=== PATIENT | male | born 1955 | race Caucasian/White ===

== ENCOUNTER 2017-02-04 09:02 | Outpatient (CLI) | payer OTHER ==
--- NOTE | 2017-02-04 12:40 | Diagnostic Imaging Report ---
Abdominal ultrasound (limited, gallbladder) The: Pain Limited sonographic images of the gallbladder provided. The gallbladder appears somewhat dilated. No definite intraluminal abnormality is. No definite calculi. No biliary dilatation (common bile duct equals 2 mm). IMPRESSION: 1. Limited exam of the gallbladder 2. Somewhat distended gallbladder. No definite intraluminal abnormalities (calculi) identified.
== END 2017-02-04 09:29 | disposition home or self-care (01) ==
LOC: RAD 09:02
PROVIDERS: ATTEND Family Medicine
DX: N32.89 Other specified disorders of bladder (principal)
CPT/HCPCS: 76705-TC

== ENCOUNTER 2017-10-14 09:08 | Emergency (ER) | payer OTHER ==
--- NOTE | 2017-10-14 09:22 | ED Physician Chart ---
ED Chief Complaint/HPI - Patient Information Date Seen:: 10/14/17 Time Seen:: 09:10 Chief Complaint:: dizziness History of Present Illness:: Patient developed dizziness a few minutes ago. No chest pain.. No shortness of breath. Allergies:: Allergies Allergy/AdvReac Type Severity Reaction Status Date / Time No Known Allergies Allergy Verified 05/19/17 09:52 Historian:: Patient Review:: Nurse's Note Reviewed ED Review of Systems - Review of Systems General/Constitutional: No fever, No chills, No weight loss, No weakness, No diaphoresis, No edema, No loss of appetite Skin: No skin lesions, No rash, No bruising Head: No headache, No light-headedness Eyes: No loss of vision, No pain, No diplopia ENT: No earache, No nasal drainage, No sore throat, No tinnitus Neck: No neck pain, No swelling, No thyromegaly, No stiffness, No mass noted Cardio Vascular: Palpitations, No PND, No orthopnea, No edema Pulmonary: No SOB, No cough, No sputum, No wheezing GI: No nausea, No vomiting, No diarrhea, No pain, No melena, No hematochezia, No constipation, No hematemesis G/U: No dysuria, No frequency, No hematuria Musculoskeletal: No bone or joint pain, No back pain, No muscle pain Endocrine: No polyuria, No polydipsia Psychiatric: No prior psych history, No depression, No anxiety, No suicidal ideation Hematopoietic: No bruising, No lymphadenopathy Allergic/Immuno: No urticaria, No angioedema Neurological: No syncope, No focal symptoms, No weakness, No paresthesia, No headache, No seizure, Dizziness, No confusion, No vertigo ED Past Medical History - Past Medical History Past Medical History: HTN, Other (patient's had 2 prior episodes of tachycardia last one 8 months ago; peptic ulcer disease) Family History: HTN Social History: Non Smoker, No Alcohol 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) Psychiatricy History: None Medication: Reviewed Family Medical History - Family Member Mother History Unknown: Yes Ethnicity: Living Status: Hx Family Congestive Heart Failure: Yes ED Physical Exam - Physical Examination General/Constitutional: Awake, Well-developed, well-nourished, Alert, No distress, GCS 15, Non-toxic appearing, Ambulatory Head: Atraumatic Eyes: Lids, conjuctiva normal, PERRL, EOMI Skin: Nl inspection, No rash, No skin lesions, No ecchymosis, Well hydrated, No lymphadenopathy ENMT: External ears, nose nl, Nasal exam nl, Lips, teeth, gums nl Neck: Nontender, Full ROM w/o pain, No JVD, No nuchal rigidity, No bruit, No mass, No stridor Respiratory: Nl effort/Exclusion, Clear to Auscultation, No Wheeze/Rhonchi/Rales Cardio Vascular: RRR, No murmur, gallop, rubs, NL S1 S2 Other Cardio Vascular comments:: Rapid regular rhythm with no murmur or extra sounds GI: No tenderness/rebounding/guarding, No organomegaly, No hernia, Normal BS's, Nondistended, No mass/bruits, No McBurney tenderness : No CVA tenderness Extremities: No tenderness or effusion, Full ROM, normal strength in all extremities, No edema, Normal digits & nails Neuro/Psych: Alert/oriented, DTR's symmetric, Normal sensory exam, Normal motor strength, Judgement/insight normal, Mood normal, Normal gait, No focal deficits Misc: Normal back, No paraspinal tenderness ED Assessment - Assessment General Assessment: Initial EKG showed paroxysmal supraventricular tachycardia; repeat EKGs showed a normal sinus rhythm at a rate of 89 and borderline left axis deviation. There is also [address] depression in leads V4 to V6. - Procedures Procedures:: Patient given adenosine 6 mg IV push with no change in his heart rate. Patient then given adenosine 12 mg IV push with a conversion of his cardiac rhythm to normal sinus. ED Septic Shock - . Is Septic Shock (SBP<90, OR Lactate>4 mmol\L) present?: No ED Reassessment (Disposition) - Reassessment Reassessment Condition:: Improved - Diagnosis Diagnosis:: Paroxysmal supraventricular tachycardia; chemical conversion to normal sinus rhythm - Aftercare/Follow up Instructions Aftercare/Follow-Up Instructions:: Refer to Discharge Instructions - Patient Disposition Discharge/Transfer:: Home Condition at Disposition:: Stable, Improved
== END 2017-10-14 09:47 | disposition home or self-care (01) ==
LOC: ER 09:08
DX: I47.1 Supraventricular tachycardia (principal); I10 Essential (primary) hypertension
CPT/HCPCS: 93005; 96374; J0153; J7030; Z7502

== ENCOUNTER 2017-10-22 07:21 | Outpatient (CLI) | payer OTHER ==
[2017-10-22 08:04] LABS: URINE MICROSCOPIC INDICATED? YES; URINE SOURCE RANDOM
[2017-10-22 08:04] LABS: % EOSINOPHILS 3.3 % (0.0-5.0); % LYMPHOCYTES 27.1 % (20.0-50.0); % MONOCYTES 8.4 % (2.0-10.0); % NEUTROPHILS 60.2 % (40.0-80.0); BASOPHILE ABSOLUTE 0.1 Th/cumm (0-0.2); EOSINOPHILE ABSOLUTE 0.2 Th/cmm (0.1-0.4); HEMATOCRIT 44.5 % (41.0-60); LYMPHOCYTE ABSOLUTE 1.8 Th/cmm (1.5-3.0); MEAN CELL VOLUME 89.8 fl (80-99); MEAN CORPUSCULAR HEMOGLOBIN 30.2 pg (26.0-30.0); MEAN CORPUSCULAR HGB CONC 33.6 pg (28.0-36.0); MEAN PLATELET VOLUME 7.3 fl; MONOCYTE ABSOLUTE 0.6 Th/cmm (0.3-1.0); NEUTROPHILE ABSOLUTE 3.9 Th/cmm (1.8-8.0); PLATELET COUNT 300 Th/cmm (150-400); RED BLOOD COUNT 4.96 Mil/cmm (4.30-5.70); RED CELL DISTRIBUTION WIDTH 13.7 % (11.5-20.0); WHITE BLOOD COUNT 6.6 Th/cmm (4.8-10.8)
[2017-10-22 08:08] LABS: URINE BILIRUBIN NEGATIVE (NEGATIVE); URINE BLOOD SMALL (NEGATIVE); URINE GLUCOSE (UA) NEGATIVE (NEGATIVE); URINE KETONE NEGATIVE (NEGATIVE); URINE LEUKOCYTE ESTERASE NEGATIVE (NEGATIVE); URINE NITRATE NEGATIVE (NEGATIVE); URINE PH 5.5 (4.6 - 8.0); URINE PROTEIN NEGATIVE (NEGATIVE); URINE UROBILINOGEN 0.2 E.U./dL (0.2 - 1.0)
[2017-10-22 08:13] LABS: URINE CLARITY CLEAR (CLEAR); URINE COLOR YELLOW
[2017-10-22 08:18] LABS: URINE BACTERIA FEW /hpf (NONE SEEN); URINE EPITHELIAL CELLS OCCASIONAL /lpf (FEW); URINE WBC 0-2 /hpf (0-5)
[2017-10-22 08:35] LABS: ALB/GLOB RATIO 1.4 (1.0-1.8); ALBUMIN 4.4 gm/dL (4.2-5.5); ALKALINE PHOSPHATASE 80 U/L (34-104); ANION GAP 11.5 (7.0-16.0); BILIRUBIN,TOTAL 0.6 mg/dL (0.3-1.0); BUN - UREA NITROGEN 21 mg/dL (7-25); CALCIUM SERUM 9.6 mg/dL (8.6-10.3); CARBON DIOXIDE 26.7 mEq/L (21.0-31.0); CHLORIDE 102 mEq/L (98-107); CREATININE - SERUM 0.9 mg/dL (0.7-1.3); GFR AFRICAN-AMERICAN > 60.0 ml/min (>90); GFR NON AFRICAN-AMERICAN > 60.0 ml/min; GLUCOSE 99 mg/dL (70-105); POTASSIUM SERUM 4.2 mEq/L (3.5-5.1); SGOT 12 U/L (13-39); SGPT/ALT 10 U/L (7-52); SODIUM SERUM 136 mEq/L (136-145); TOTAL PROTEIN,SERUM 7.6 gm/dL (6.0-8.3)
== END 2017-10-22 08:15 | disposition home or self-care (01) ==
LOC: LAB 07:21
PROVIDERS: ATTEND Family Medicine
DX: I10 Essential (primary) hypertension (principal); E78.5 Hyperlipidemia, unspecified; R79.89 Other specified abnormal findings of blood chemistry
CPT/HCPCS: 36415-UA; 80053-TC; 81001-TC; 84153-90; 84436-90; 84443-TC; 84480-90; 85025-TC

== ENCOUNTER 2017-12-12 16:02 | Emergency (ER) | payer OTHER ==
[2017-12-12 16:49] LABS: NEUTROPHILE ABSOLUTE 4.7 Th/cmm (1.8-8.0); WHITE BLOOD COUNT 7.6 Th/cmm (4.8-10.8)
[2017-12-12 16:52] LABS: % BASOPHILS 0.5 % (0.0-2.0); % EOSINOPHILS 3.1 % (0.0-5.0); % LYMPHOCYTES 26.2 % (20.0-50.0); % MONOCYTES 8.8 % (2.0-10.0); % NEUTROPHILS 61.4 % (40.0-80.0); EOSINOPHILE ABSOLUTE 0.2 Th/cmm (0.1-0.4); HEMATOCRIT 42.3 % (41.0-60); HEMOGLOBIN 14.5 gm/dL (12-16); MEAN CELL VOLUME 89.7 fl (80-99); MEAN CORPUSCULAR HEMOGLOBIN 30.8 pg (26.0-30.0); MEAN CORPUSCULAR HGB CONC 34.3 pg (28.0-36.0); MEAN PLATELET VOLUME 7.6 fl; MONOCYTE ABSOLUTE 0.7 Th/cmm (0.3-1.0); PLATELET COUNT 285 Th/cmm (150-400); RED BLOOD COUNT 4.72 Mil/cmm (4.30-5.70)
--- NOTE | 2017-12-12 17:00 | ED Physician Chart ---
ED Chief Complaint/HPI - Patient Information Date Seen:: 12/12/17 Time Seen:: 16:56 Chief Complaint:: hypertension History of Present Illness:: 62 yr oldmale with hx of hypertension md adjusting meds hctz sotolol now on metoprolol no headache dizziness no cp or sob Allergies:: Allergies Allergy/AdvReac Type Severity Reaction Status Date / Time No Known Allergies Allergy Verified 10/14/17 09:44 Vitals:: Vital Signs - 8 hr 12/12/17 16:15 Temp 97.8 F HR 70 RR 17 BP 141/60 O2 Sat % 98 Historian:: Patient ED Review of Systems - Review of Systems General/Constitutional: No fever, No chills, No weight loss, No weakness, No diaphoresis, No edema, No loss of appetite Skin: No skin lesions, No rash, No bruising Head: No headache, No light-headedness Eyes: No loss of vision, No pain, No diplopia ENT: No earache, No nasal drainage, No sore throat, No tinnitus Neck: No neck pain, No swelling, No thyromegaly, No stiffness, No mass noted Cardio Vascular: No chest pain, No palpitations, No PND, No orthopnea, No edema Pulmonary: No SOB, No cough, No sputum, No wheezing GI: No nausea, No vomiting, No diarrhea, No pain, No melena, No hematochezia, No constipation, No hematemesis G/U: No dysuria, No frequency, No hematuria Musculoskeletal: No bone or joint pain, No back pain, No muscle pain Endocrine: No polyuria, No polydipsia Psychiatric: No prior psych history, No depression, No anxiety, No suicidal ideation Hematopoietic: No bruising, No lymphadenopathy Allergic/Immuno: No urticaria, No angioedema Neurological: No syncope, No focal symptoms, No weakness, No paresthesia, No headache, No seizure, No dizziness, No confusion, No vertigo ED Past Medical History - Past Medical History Past Medical History: HTN Family Medical History - Family Member Mother History Unknown: Yes Ethnicity: Living Status: Hx Family Congestive Heart Failure: Yes Hx Family Hypertension: Yes ED Physical Exam - Physical Examination General/Constitutional: Awake, Well-developed, well-nourished, Alert, No distress, GCS 15, Non-toxic appearing, Ambulatory Head: Atraumatic Eyes: Lids, conjuctiva normal, PERRL, EOMI Skin: Nl inspection, No rash, No skin lesions, No ecchymosis, Well hydrated, No lymphadenopathy ENMT: External ears, nose nl, Nasal exam nl, Lips, teeth, gums nl Neck: Nontender, Full ROM w/o pain, No JVD, No nuchal rigidity, No bruit, No mass, No stridor Respiratory: Nl effort/Exclusion, Clear to Auscultation, No Wheeze/Rhonchi/Rales Cardio Vascular: RRR, No murmur, gallop, rubs, NL S1 S2 GI: No tenderness/rebounding/guarding, No organomegaly, No hernia, Normal BS's, Nondistended, No mass/bruits, No McBurney tenderness : No CVA tenderness Extremities: No tenderness or effusion, Full ROM, normal strength in all extremities, No edema, Normal digits & nails Neuro/Psych: Alert/oriented, DTR's symmetric, Normal sensory exam, Normal motor strength, Judgement/insight normal, Mood normal, Normal gait, No focal deficits Misc: Normal back, No paraspinal tenderness ED Labs/Radiology/EKG Results - Lab Results Results: Laboratory Tests 12/12/17 16:38 WBC 7.6 RBC 4.72 Hgb 14.5 Hct 42.3 MCV 89.7 MCH 30.8 H MCHC Differential 34.3 RDW 14.0 Plt Count 285 MPV 7.6 Neutrophils % 61.4 Lymphocytes % 26.2 Monocytes % 8.8 Eosinophils % 3.1 Basophils % 0.5 ED Assessment - Assessment General Assessment: hypertension elevation ED Septic Shock - . Is Septic Shock (SBP<90, OR Lactate>4 mmol\L) present?: No - <6hrs of presentation: Vital Signs: Vital Signs - 8 hr 12/12/17 16:15 Temp 97.8 F HR 70 RR 17 BP 141/60 O2 Sat % 98 ED Reassessment (Disposition) - Diagnosis Diagnosis:: hypertension stable - Aftercare/Follow up Instructions Medication Prescribed:: none - Patient Disposition Discharge/Transfer:: Home ED Discharge Plan - Patient Disposition Condition at Disposition: Stable
[2017-12-12 17:02] LABS: ALB/GLOB RATIO 1.6 (1.0-1.8); ALBUMIN 4.6 gm/dL (4.2-5.5); ALKALINE PHOSPHATASE 78 U/L (34-104); ANION GAP 11.3 (7.0-16.0); BILIRUBIN,TOTAL 0.5 mg/dL (0.3-1.0); BUN - UREA NITROGEN 19 mg/dL (7-25); CALCIUM SERUM 10.1 mg/dL (8.6-10.3); CARBON DIOXIDE 26.7 mEq/L (21.0-31.0); CHLORIDE 102 mEq/L (98-107); CREATININE - SERUM 0.9 mg/dL (0.7-1.3); GFR AFRICAN-AMERICAN > 60.0 ml/min (>90); GFR NON AFRICAN-AMERICAN > 60.0 ml/min; GLUCOSE 100 mg/dL (70-105); SGOT 15 U/L (13-39); SGPT/ALT 10 U/L (7-52); SODIUM SERUM 136 mEq/L (136-145); TOTAL PROTEIN,SERUM 7.4 gm/dL (6.0-8.3)
== END 2017-12-12 17:15 | disposition home or self-care (01) ==
LOC: ER 16:02
DX: I10 Essential (primary) hypertension (principal)
CPT/HCPCS: 36415-UA; 80053-TC; 84484-TC; 85025-TC; Z7502

== ENCOUNTER 2018-04-12 20:55 | Emergency (ER) | payer OTHER ==
[2018-04-12] MEDS ORDERED: Diltiazem 5 mg/mL 5mL Vial IVP STA (21:21)
[2018-04-12] MEDS ORDERED: Diltiazem 5 mg/mL 5mL Vial IVP ONE (21:25)
[2018-04-12 21:45] LABS: % BASOPHILS 0.4 % (0.0-2.0); % NEUTROPHILS 51.6 % (40.0-80.0); EOSINOPHILE ABSOLUTE 0.4 Th/cmm (0.1-0.4); HEMATOCRIT 44.4 % (41.0-60); HEMOGLOBIN 14.6 gm/dL (12-16); LYMPHOCYTE ABSOLUTE 3.3 Th/cmm (1.5-3.0); MEAN CELL VOLUME 91.2 fl (80-99); MEAN CORPUSCULAR HEMOGLOBIN 30.1 pg (26.0-30.0); MEAN PLATELET VOLUME 8.2 fl; MONOCYTE ABSOLUTE 0.8 Th/cmm (0.3-1.0); NEUTROPHILE ABSOLUTE 4.9 Th/cmm (1.8-8.0); PLATELET COUNT 286 Th/cmm (150-400); RED BLOOD COUNT 4.86 Mil/cmm (4.30-5.70); RED CELL DISTRIBUTION WIDTH 13.6 % (11.5-20.0); WHITE BLOOD COUNT 9.4 Th/cmm (4.8-10.8)
--- NOTE | 2018-04-12 21:46 | ED Physician Chart ---
ED Chief Complaint/HPI - Patient Information Date Seen:: 04/12/18 Time Seen:: 21:45 Chief Complaint:: Palpitation History of Present Illness:: 62 yo male with history of hypertension, took metoprolol one tab around 6pm. Patient then had sudden onset of dizziness and palpitation at home around 8pm. Patient took blood pressure, 126/77, HR 164. Patient denied chest pain, shortness of breath, or sweats. However, patient had burping and mid upper back pain. Patient was subsequently brought by to ER. On arrival, BP 121/87, HR 174, O2 sat 98% on room air. Cardizem 10mg IV push was given and HR went to 79, BP 122/67. Patient had similar episode of palpitation about 5 months ago. Patient has been seeing a hoop maker machine and was told earlier today that his 2- week hall monitor was unremarkable. Allergies:: Allergies Allergy/AdvReac Type Severity Reaction Status Date / Time No Known Allergies Allergy Verified 04/12/18 21:16 Vitals:: Vital Signs - 8 hr 04/12/18 04/12/18 21:00 21:28 Temp 98.0 F HR 174 174 RR 11 BP 121/87 O2 Sat % 96 ED Review of Systems - Review of Systems General/Constitutional: No fever, Chills Skin: No rash Head: No light-headedness Eyes: No pain ENT: No nasal drainage Neck: No neck pain Cardio Vascular: No chest pain, Palpitations Pulmonary: No SOB GI: No nausea, No vomiting Musculoskeletal: No bone or joint pain, Back pain (mid upper back pain) Psychiatric: No prior psych history Neurological: No focal symptoms ED Past Medical History - Past Medical History Past Medical History: HTN Social History: Non Smoker, No Alcohol, No Drug Use Surgical History: other (EGD for gastric ulcer) Family Medical History - Family Member Mother History Unknown: Yes Ethnicity: Living Status: Hx Family Congestive Heart Failure: Yes Hx Family Hypertension: Yes ED Physical Exam - Physical Examination General/Constitutional: Awake, Alert Head: Atraumatic Eyes: PERRL, EOMI Skin: No skin lesions ENMT: Nasal exam nl Neck: No nuchal rigidity Respiratory: Clear to Auscultation, No Wheeze/Rhonchi/Rales Cardio Vascular: RRR, No murmur, gallop, rubs, NL S1 S2 GI: No tenderness/rebounding/guarding Extremities: No tenderness or effusion Neuro/Psych: Normal sensory exam, Normal motor strength, No focal deficits ED Labs/Radiology/EKG Results - Lab Results Results: Laboratory Last Values WBC 9.4 Th/cmm (4.8-10.8) 04/12/18 21:35 RBC 4.86 Mil/cmm (4.30-5.70) 04/12/18 21:35 Hgb 14.6 gm/dL (12-16) 04/12/18 21:35 Hct 44.4 % (41.0-60) 04/12/18 21:35 MCV 91.2 fl (80-99) 04/12/18 21:35 MCH 30.1 pg (26.0-30.0) H 04/12/18 21:35 MCHC Differential 33.0 pg (28.0-36.0) 04/12/18 21:35 RDW 13.6 % (11.5-20.0) 04/12/18 21:35 Plt Count 286 Th/cmm (150-400) 04/12/18 21:35 MPV 8.2 fl 04/12/18 21:35 Neutrophils % 51.6 % (40.0-80.0) 04/12/18 21:35 Lymphocytes % 35.0 % (20.0-50.0) 04/12/18 21:35 Monocytes % 9.0 % (2.0-10.0) 04/12/18 21:35 Eosinophils % 4.0 % (0.0-5.0) 04/12/18 21:35 Basophils % 0.4 % (0.0-2.0) 04/12/18 21:35 D-Dimer < 100 ng/mL (100-400) L 04/12/18 21:35 Sodium 136 mEq/L (136-145) 04/12/18 21:35 Potassium 4.2 mEq/L (3.5-5.1) 04/12/18 21:35 Chloride 102 mEq/L (98-107) 04/12/18 21:35 Carbon Dioxide 23.6 mEq/L (21.0-31.0) 04/12/18 21:35 Anion Gap 14.6 (7.0-16.0) 04/12/18 21:35 BUN 20 mg/dL (7-25) 04/12/18 21:35 Creatinine 0.9 mg/dL (0.7-1.3) 04/12/18 21:35 Est GFR ( Amer) > 60.0 ml/min (>90) 04/12/18 21:35 Est GFR (Non-Af Amer) > 60.0 ml/min 04/12/18 21:35 BUN/Creatinine Ratio 22.2 04/12/18 21:35 Glucose 116 mg/dL (70-105) H 04/12/18 21:35 Calcium 9.7 mg/dL (8.6-10.3) 04/12/18 21:35 Total Bilirubin 0.3 mg/dL (0.3-1.0) 04/12/18 21:35 AST 19 U/L (13-39) 04/12/18 21:35 ALT 11 U/L (7-52) 04/12/18 21:35 Alkaline Phosphatase 88 U/L (34-104) 04/12/18 21:35 Creatine Kinase 129 U/L (30-223) 04/12/18 21:35 Troponin I 0.01 ng/mL (0.01-0.05) 04/12/18 21:35 B-Natriuretic Peptide 27.8 pg/mL (5.0-100.0) 04/12/18 21:35 Total Protein 7.9 gm/dL (6.0-8.3) 04/12/18 21:35 Albumin 4.5 gm/dL (4.2-5.5) 04/12/18 21:35 Globulin 3.4 gm/dL 04/12/18 21:35 Albumin/Globulin Ratio 1.3 (1.0-1.8) 04/12/18 21:35 - Radiology Results Results: CXR: no focal consolidation - EKG Interpretations EKG Time:: 21:13 Rate & Rhythm: 177 bpm, supraventricular tachycardia [place]: Probable left ventricular hypertrophy Intervals: Left anterior fascicular block ED Assessment - Assessment General Assessment: Supraventricular tachycardia Hypertension Dehydration Assessment/Comments:: EKG Cardizem 10mg IV CBC, CMP, BNP, Trop, CPK CXR NS 1L IV bolus D/c home Cardizem 30mg po q6h F/u hoop maker machine within 3 days ED Septic Shock - . Is Septic Shock (SBP<90, OR Lactate>4 mmol\L) present?: No - <6hrs of presentation: Vital Signs: Vital Signs - 8 hr 04/12/18 04/12/18 21:00 21:28 Temp 98.0 F HR 174 174 RR 11 BP 121/87 O2 Sat % 96 ED Reassessment (Disposition) - Reassessment Reassessment Condition:: Improved - Aftercare/Follow up Instructions Medication Prescribed:: Diltiazem 30mg po qid #28 - Patient Disposition Discharge/Transfer:: Home
[2018-04-12 21:59] LABS: ALB/GLOB RATIO 1.3 (1.0-1.8); ALBUMIN 4.5 gm/dL (4.2-5.5); ALKALINE PHOSPHATASE 88 U/L (34-104); ANION GAP 14.6 (7.0-16.0); BILIRUBIN,TOTAL 0.3 mg/dL (0.3-1.0); BUN - UREA NITROGEN 20 mg/dL (7-25); CALCIUM SERUM 9.7 mg/dL (8.6-10.3); CARBON DIOXIDE 23.6 mEq/L (21.0-31.0); CHLORIDE 102 mEq/L (98-107); CREATININE - SERUM 0.9 mg/dL (0.7-1.3); GFR AFRICAN-AMERICAN > 60.0 ml/min (>90); GFR NON AFRICAN-AMERICAN > 60.0 ml/min; GLUCOSE 116 mg/dL (70-105); POTASSIUM SERUM 4.2 mEq/L (3.5-5.1); SGOT 19 U/L (13-39); SGPT/ALT 11 U/L (7-52); SODIUM SERUM 136 mEq/L (136-145); TOTAL PROTEIN,SERUM 7.9 gm/dL (6.0-8.3)
[2018-04-12] MEDS ORDERED: Sodium Chloride 0.9% 1,000 ML IV ONE (22:09)
--- NOTE | 2018-04-13 08:44 | Diagnostic Imaging Report ---
CHEST X-RAY: AP view INDICATION: Palpitations COMPARISON: Chest x-ray 05/19/2017 FINDINGS: Chronic lung changes are seen. Right pericardiophrenic density is noted likely a prominent fat pad. No focal consolidation or effusions. Heart size is normal. Degenerative changes of the spine are noted. IMPRESSION: Right pericardiophrenic density probably a prominent fat pad. If necessary, CT would further clarify Otherwise no focal consolidation identified.
== END 2018-04-12 23:10 | disposition home or self-care (01) ==
LOC: ER 20:55
DX: I47.1 Supraventricular tachycardia (principal); I10 Essential (primary) hypertension; E86.0 Dehydration
CPT/HCPCS: 36415-UA; 71045-TC; 80053-TC; 82550-TC; 83880-TC; 84484-TC; 85025-TC; 85379-TC; 90779; 93005; 96374; J7030

== ENCOUNTER 2018-07-25 06:12 | Inpatient (IN) | payer OTHER ==
[2018-07-25] MEDS ORDERED: Diltiazem 5 mg/mL 5mL Vial IVP ONE (06:28)
[2018-07-25] MEDS ORDERED: Diltiazem 5 mg/mL 5mL Vial IVP STA (06:29)
--- NOTE | 2018-07-25 06:36 | ED Physician Chart ---
ED Chief Complaint/HPI - Patient Information Date Seen:: 07/25/18 Time Seen:: 06:31 Chief Complaint:: tachycardia History of Present Illness:: 62 yr old male with tachycardia this morning at 5 am while making coffee and felt palpitaions and head gallardo and in er ht was 170 Allergies:: Allergies Allergy/AdvReac Type Severity Reaction Status Date / Time No Known Allergies Allergy Verified 07/25/18 06:20 Vitals:: Vital Signs - 8 hr 07/25/18 06:15 Temp 98.1 F HR 186 RR 18 BP 131/82 O2 Sat % 96 <Gillian Moreno - Last Filed: 07/25/18 06:31> - Patient Information Chief Complaint:: superventricular tachycardia Allergies:: Allergies Allergy/AdvReac Type Severity Reaction Status Date / Time No Known Allergies Allergy Verified 07/25/18 06:20 Vitals:: Vital Signs - 8 hr 07/25/18 07/25/18 07/25/18 06:15 06:25 06:30 Temp 98.1 F HR 186 178 174 RR 18 18 BP 131/82 115/68 O2 Sat % 96 94 07/25/18 07/25/18 07/25/18 06:34 07:27 07:30 Temp 98.1 F HR 72 76 RR 18 12 BP 108/62 121/70 O2 Sat % 97 99 <Ethan Harris - Last Filed: 07/25/18 07:36> ED Review of Systems - Review of Systems General/Constitutional: No fever, No chills, No weight loss, No weakness, No diaphoresis, No edema, No loss of appetite Skin: No skin lesions, No rash, No bruising Head: No headache, No light-headedness Eyes: No loss of vision, No pain, No diplopia ENT: No earache, No nasal drainage, No sore throat, No tinnitus Neck: No neck pain, No swelling, No thyromegaly, No stiffness, No mass noted Cardio Vascular: Palpitations Pulmonary: No SOB, No cough, No sputum, No wheezing GI: No nausea, No vomiting, No diarrhea, No pain, No melena, No hematochezia, No constipation, No hematemesis G/U: No dysuria, No frequency, No hematuria Musculoskeletal: No bone or joint pain, No back pain, No muscle pain Endocrine: No polyuria, No polydipsia Psychiatric: No prior psych history, No depression, No anxiety, No suicidal ideation Hematopoietic: No bruising, No lymphadenopathy Allergic/Immuno: No urticaria, No angioedema Neurological: No syncope, No focal symptoms, No weakness, No paresthesia, No headache, No seizure, No dizziness, No confusion, No vertigo <JoshkentonGillian Filed: 07/25/18 06:31> ED Past Medical History - Past Medical History Past Medical History: Other (svt) <juan [email or web address] Filed: 07/25/18 06:31> Family Medical History - Family Member Mother History Unknown: Yes Ethnicity: Living Status: Hx Family Congestive Heart Failure: Yes Hx Family Hypertension: Yes <Gillian Moreno Filed: 07/25/18 06:31> ED Physical Exam - Physical Examination General/Constitutional: Awake, Well-developed, well-nourished, Alert, No distress, GCS 15, Non-toxic appearing, Ambulatory Head: Atraumatic Eyes: Lids, conjuctiva normal, PERRL, EOMI Skin: Nl inspection, No rash, No skin lesions, No ecchymosis, Well hydrated, No lymphadenopathy ENMT: External ears, nose nl, Nasal exam nl, Lips, teeth, gums nl Neck: Nontender, Full ROM w/o pain, No JVD, No nuchal rigidity, No bruit, No mass, No stridor Respiratory: Nl effort/Exclusion, Clear to Auscultation, No Wheeze/Rhonchi/Rales Cardio Vascular: RRR, No murmur, gallop, rubs, NL S1 S2 Other Cardio Vascular comments:: tachycardia GI: No tenderness/rebounding/guarding, No organomegaly, No hernia, Normal BS's, Nondistended, No mass/bruits, No McBurney tenderness : No CVA tenderness Extremities: No tenderness or effusion, Full ROM, normal strength in all extremities, No edema, Normal digits & nails Neuro/Psych: Alert/oriented, DTR's symmetric, Normal sensory exam, Normal motor strength, Judgement/insight normal, Mood normal, Normal gait, No focal deficits Misc: Normal back, No paraspinal tenderness <JoshkentonGillian Filed: 07/25/18 06:31> ED Labs/Radiology/EKG Results - Lab Results Results: Laboratory Tests 07/25/18 07/25/18 07/25/18 06:45 06:45 06:45 WBC 8.0 RBC 4.76 Hgb 14.2 Hct 42.9 MCV 90.0 MCH 29.8 MCHC Differential 33.2 RDW 13.7 Plt Count 277 MPV 8.1 Neutrophils % 52.5 Lymphocytes % 32.8 Monocytes % 9.6 Eosinophils % 4.5 Basophils % 0.6 PT 10.5 INR 1.01 PTT (Actin FS) 31.0 Troponin I < 0.01 L <Ehtan Harris - Last Filed: 07/25/18 07:36> ED Assessment - Assessment General Assessment: tachycardia svt <Gillian Moreno - Last Filed: 07/25/18 06:31> ED Septic Shock - . Is Septic Shock (SBP<90, OR Lactate>4 mmol\L) present?: No - <6hrs of presentation: Vital Signs: Vital Signs - 8 hr 07/25/18 06:15 Temp 98.1 F HR 186 RR 18 BP 131/82 O2 Sat % 96 <Gillian Moreno - Last Filed: 07/25/18 06:31> - <6hrs of presentation: Vital Signs: Vital Signs - 8 hr 07/25/18 07/25/18 07/25/18 06:15 06:25 06:30 Temp 98.1 F HR 186 178 174 RR 18 18 BP 131/82 115/68 O2 Sat % 96 94 07/25/18 07/25/18 07/25/18 06:34 07:27 07:30 Temp 98.1 F HR 72 76 RR 18 12 BP 108/62 121/70 O2 Sat % 97 99 <Ethan Harris - Last Filed: 07/25/18 07:36> ED Reassessment (Disposition) - Reassessment Reassessment:: tachycardia svt - Diagnosis Diagnosis:: tachycardia svt - Aftercare/Follow up Instructions Aftercare/Follow-Up Instructions:: Counseled pt regarding lab results/diagnosis & need follow up - Patient Disposition Discharge/Transfer:: Home Condition at Disposition:: Stable <Gillian Moreno - Last Filed: 07/25/18 06:31> - Aftercare/Follow up Instructions Notes:: spoke to the patient's doctor and he wanted the patient admitted. - Patient Disposition Discharge/Transfer:: Acute Care w/in this hosp Admitting Medical Physician:: Abdoul Luna <Ethan Harris - Last Filed: 07/25/18 07:36>
[2018-07-25 07:03] LABS: % BASOPHILS 0.6 % (0.0-2.0); % EOSINOPHILS 4.5 % (0.0-5.0); % LYMPHOCYTES 32.8 % (20.0-50.0); % MONOCYTES 9.6 % (2.0-10.0); % NEUTROPHILS 52.5 % (40.0-80.0); EOSINOPHILE ABSOLUTE 0.4 Th/cmm (0.1-0.4); HEMATOCRIT 42.9 % (41.0-60); HEMOGLOBIN 14.2 gm/dL (12-16); LYMPHOCYTE ABSOLUTE 2.6 Th/cmm (1.5-3.0); MEAN CORPUSCULAR HEMOGLOBIN 29.8 pg (26.0-30.0); MEAN CORPUSCULAR HGB CONC 33.2 pg (28.0-36.0); MEAN PLATELET VOLUME 8.1 fl; MONOCYTE ABSOLUTE 0.8 Th/cmm (0.3-1.0); NEUTROPHILE ABSOLUTE 4.2 Th/cmm (1.8-8.0); PLATELET COUNT 277 Th/cmm (150-400); RED BLOOD COUNT 4.76 Mil/cmm (4.30-5.70); RED CELL DISTRIBUTION WIDTH 13.7 % (11.5-20.0)
[2018-07-25] MEDS ORDERED: Sodium Chloride 0.9% 1,000 ML IV ONE (07:03)
[2018-07-25 07:15] LABS: INR 1.01 (0.5-1.4); PROTHROMBIN TIME (TEST) 10.5 SECONDS (9.5-11.5)
[2018-07-25 07:19] LABS: ALB/GLOB RATIO 1.6 (1.0-1.8); ALBUMIN 4.2 gm/dL (4.2-5.5); ALKALINE PHOSPHATASE 79 U/L (34-104); BILIRUBIN,TOTAL 0.3 mg/dL (0.3-1.0); BUN - UREA NITROGEN 21 mg/dL (7-25); CARBON DIOXIDE 23.3 mEq/L (21.0-31.0); CREATININE - SERUM 0.9 mg/dL (0.7-1.3); GFR AFRICAN-AMERICAN > 60.0 ml/min (>90); GFR NON AFRICAN-AMERICAN > 60.0 ml/min; GLUCOSE 126 mg/dL (70-105); SGOT 15 U/L (13-39); SGPT/ALT 12 U/L (7-52); TOTAL PROTEIN,SERUM 6.9 gm/dL (6.0-8.3)
[2018-07-25 07:53] LABS: ANION GAP 14.6 (7.0-16.0); CHLORIDE 105 mEq/L (98-107); POTASSIUM SERUM 3.9 mEq/L (3.5-5.1); SODIUM SERUM 139 mEq/L (136-145)
[2018-07-25] MEDS ORDERED: Diltiazem 30 mg Tab PO PRN (12:11)
[2018-07-25 12:39] LABS: CHOLESTEROL 233 mg/dL (<200); HDL -HIGH DENSITY LIPOPROTEIN 38 mg/dL (23-92); TRIGLYCERIDES 275 mg/dL (<150)
[2018-07-25 13:19] VITALS: BP 132/61
--- NOTE | 2018-07-25 14:16 | History and Physical ---
History of Present Illness - HPI Chief Complaint: chest pain rule out ACS HPI: 62 y/o male who presents to [facility] ER for substernal chest pain. Vital Signs: Last Vital Signs Temp 97.7 F 07/25/18 11:37 Pulse 60 07/25/18 11:37 Resp 20 07/25/18 13:03 BP 132/61 07/25/18 13:12 Pulse Ox 98 07/25/18 11:37 Past Medical History Cardiovascular: Report: HTN Pulmonary: Report: No Pertinent Hx [employer] STEWARD: Report: No Pertinent Hx GI: Report: No Pertinent Hx Psych: Report: No Pertinent Hx Musculoskeletal: Report: No Pertinent Hx Rheumatologic: Report: No pertinent Hx Infectious Disease: Report: No Pertinent Hx Renal/: Report: No Pertinent Hx Endocrine: Report: No Pertinent Hx Dermatology: Report: No Pertinent Hx - Past Surgical History Past Surgical History: No pertinent Hx Family Medical History - Family Member Mother History Unknown: Yes Ethnicity: Living Status: Hx Family Congestive Heart Failure: Yes Hx Family Hypertension: Yes Social History Smoke: No Alcohol: None Drugs: None Lives: With Family - Medications Home Medications: Home Medication Medication Instructions Recorded Type Aspirin EC [Ecotrin] 81 mg PO DAILY 11/07/14 History Lisinopril/Hydrochlorothiazide 1 tab PO DAILY 12/12/17 History [Lisinopril-Hctz 20-12.5 mg Tab] Metoprolol Succinate 25 mg PO DAILY 12/12/17 History Diltiazem [Cardizem] 30 mg PO DAILY PRN 07/25/18 History - Allergies Allergies/Adverse Reactions: Allergies Allergy/AdvReac Type Severity Reaction Status Date / Time No Known Allergies Allergy Verified 07/25/18 06:20 Review of Systems - Review of Systems Constitutional: Report: No Significant Eyes: Report: No Significant ENT: Report: No Significant Respiratory: Report: No Significant Cardiovascular: Report: Chest Pain Gastrointestinal: Report: No Significant Genitourinary: Report: No Significant Musculoskeletal: Report: No Significant Skin: Report: No Significant Neurological: Report: No Significant Physical Exam - Physical Exam HEENT: Report: Ears Nose Throat within normal limits, Pharnyx within normal limits Neck: Report: Within normal limits Cardiovascular Systems: Report: +s1/s2 noted, Regular, Rate and Rhythm Respiratory: Report: Breath Sounds are within normal limits Abdomen: Report: Non-tender to palpation Back: Report: Inspection of back is within normal limits. Extremities: Report: Non-tender to palpation. Skin: Report: Color of skin is within normal limits Neuro/Psych: Report: Mood affect is within normal limits, A+Ox3 - Lab Results All Lab Results last 24 hours: Laboratory Results - last 24 hr 07/25/18 07/25/18 07/25/18 06:45 06:45 06:45 WBC 8.0 RBC 4.76 Hgb 14.2 Hct 42.9 MCV 90.0 MCH 29.8 MCHC Differential 33.2 RDW 13.7 Plt Count 277 MPV 8.1 Neutrophils % 52.5 Lymphocytes % 32.8 Monocytes % 9.6 Eosinophils % 4.5 Basophils % 0.6 PT INR PTT (Actin FS) Sodium 139 Potassium 3.9 Chloride 105 Carbon Dioxide 23.3 Anion Gap 14.6 BUN 21 Creatinine 0.9 Est GFR ( Amer) > 60.0 Est GFR (Non-Af Amer) > 60.0 BUN/Creatinine Ratio 23.3 Glucose 126 H Calcium 9.0 Total Bilirubin 0.3 AST 15 ALT 12 Alkaline Phosphatase 79 Troponin I < 0.01 L Total Protein 6.9 Albumin 4.2 Globulin 2.7 Albumin/Globulin Ratio 1.6 Triglycerides Cholesterol LDL Cholesterol Direct HDL Cholesterol TSH 07/25/18 07/25/18 07/25/18 06:45 06:45 06:45 WBC RBC Hgb Hct MCV MCH MCHC Differential RDW Plt Count MPV Neutrophils % Lymphocytes % Monocytes % Eosinophils % Basophils % PT 10.5 INR 1.01 PTT (Actin FS) 31.0 Sodium Potassium Chloride Carbon Dioxide Anion Gap BUN Creatinine Est GFR ( Amer) Est GFR (Non-Af Amer) BUN/Creatinine Ratio Glucose Calcium Total Bilirubin AST ALT Alkaline Phosphatase Troponin I Total Protein Albumin Globulin Albumin/Globulin Ratio Triglycerides 275 H Cholesterol 233 H LDL Cholesterol Direct 187 HDL Cholesterol 38 TSH 2.85 - Assessment Assessment: chest pain r/o ACS HTN - Plan Plan: admit to telemetry serial troponin levels cardiac consult with Dr. Camilo Driver continue home meds
--- NOTE | 2018-07-25 22:45 | Consultation ---
DATE OF CONSULTATION: 07/25/[address] Abdoul Luna. HISTORY AND PHYSICAL: This 62-year-old male patient, who was admitted with paroxysmal supraventricular tachycardia. The patient was given 10 mg of Cardizem, converted to normal sinus rhythm and the patient is admitted. According to the patient, he had 3 episodes in the past about every 3 months. 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 The patient was started on beta felicita. PHYSICAL EXAMINATION: VITAL SIGNS: Blood pressure 130/80, pulse 78. LUNGS: Clear. HEAD: Normocephalic. No lumps or bumps. EYES: Pupils equal, reactive to light. Fundi show AV nicking, sclerae white, conjunctivae pink. NECK: Carotid 2+. Normal upstroke. JVD flat. Thyroid not palpable. Lymph nodes not palpable. CHEST: Shows increased AP diameter. No kyphosis or scoliosis. LUNGS: Bilateral bronchovesicular breath sounds. HEART: PMI fifth intercostal space with lateral to midclavicular line. S1, S2. No S3, S4, soft systolic murmur. ABDOMEN: Soft. Liver, spleen not palpable. No organomegaly. Bowel sounds active. NEUROLOGIC: Unremarkable. EXTREMITIES: Peripheral pulses 2+. No pedal edema. LABORATORY DATA: The patient's troponin level normal. CLINICAL IMPRESSION: Paroxysmal supraventricular tachycardia. PLAN: The patient to continue on Lopressor, add Cardizem 30 mg t.i.d. We will also get an echocardiogram. Most likely, the patient needs radiofrequency ablation. [facility]# [id number]
[2018-07-26 04:58] LABS: % BASOPHILS 0.5 % (0.0-2.0); % EOSINOPHILS 4.9 % (0.0-5.0); % LYMPHOCYTES 31.8 % (20.0-50.0); % MONOCYTES 8.8 % (2.0-10.0); EOSINOPHILE ABSOLUTE 0.3 Th/cmm (0.1-0.4); HEMOGLOBIN 13.6 gm/dL (12-16); LYMPHOCYTE ABSOLUTE 1.9 Th/cmm (1.5-3.0); MEAN CELL VOLUME 89.9 fl (80-99); MEAN CORPUSCULAR HEMOGLOBIN 30.5 pg (26.0-30.0); MEAN CORPUSCULAR HGB CONC 33.9 pg (28.0-36.0); MEAN PLATELET VOLUME 7.7 fl; MONOCYTE ABSOLUTE 0.5 Th/cmm (0.3-1.0); NEUTROPHILE ABSOLUTE 3.2 Th/cmm (1.8-8.0); PLATELET COUNT 259 Th/cmm (150-400); RED BLOOD COUNT 4.45 Mil/cmm (4.30-5.70); RED CELL DISTRIBUTION WIDTH 13.8 % (11.5-20.0); WHITE BLOOD COUNT 5.9 Th/cmm (4.8-10.8)
[2018-07-26 05:27] LABS: ALB/GLOB RATIO 1.7 (1.0-1.8); ALBUMIN 3.9 gm/dL (4.2-5.5); ALKALINE PHOSPHATASE 70 U/L (34-104); ANION GAP 10.6 (7.0-16.0); BILIRUBIN,TOTAL 0.4 mg/dL (0.3-1.0); BUN - UREA NITROGEN 17 mg/dL (7-25); CALCIUM SERUM 8.8 mg/dL (8.6-10.3); CARBON DIOXIDE 26.2 mEq/L (21.0-31.0); CHLORIDE 105 mEq/L (98-107); CREATININE - SERUM 0.8 mg/dL (0.7-1.3); GFR AFRICAN-AMERICAN > 60.0 ml/min (>90); GFR NON AFRICAN-AMERICAN > 60.0 ml/min; GLUCOSE 99 mg/dL (70-105); POTASSIUM SERUM 3.8 mEq/L (3.5-5.1); SGOT 13 U/L (13-39); SGPT/ALT 10 U/L (7-52); SODIUM SERUM 138 mEq/L (136-145); TOTAL PROTEIN,SERUM 6.2 gm/dL (6.0-8.3)
--- NOTE | 2018-07-26 08:34 | General Progress Note ---
Subjective - Review of Systems Service Date: 07/26/18 Subjective: Patient is awake, alert, no acute distress. Doing well. No acute distress. Vitals stable. Objective - Results Result Diagrams: 07/26/18 04:20 07/26/18 04:20 Recent Labs: Laboratory Last Values WBC 5.9 Th/cmm (4.8-10.8) 07/26/18 04:20 RBC 4.45 Mil/cmm (4.30-5.70) 07/26/18 04:20 Hgb 13.6 gm/dL (12-16) 07/26/18 04:20 Hct 40.0 % (41.0-60) L 07/26/18 04:20 MCV 89.9 fl (80-99) 07/26/18 04:20 MCH 30.5 pg (26.0-30.0) H 07/26/18 04:20 MCHC Differential 33.9 pg (28.0-36.0) 07/26/18 04:20 RDW 13.8 % (11.5-20.0) 07/26/18 04:20 Plt Count 259 Th/cmm (150-400) 07/26/18 04:20 MPV 7.7 fl 07/26/18 04:20 Neutrophils % 54.0 % (40.0-80.0) 07/26/18 04:20 Lymphocytes % 31.8 % (20.0-50.0) 07/26/18 04:20 Monocytes % 8.8 % (2.0-10.0) 07/26/18 04:20 Eosinophils % 4.9 % (0.0-5.0) 07/26/18 04:20 Basophils % 0.5 % (0.0-2.0) 07/26/18 04:20 PT 10.5 SECONDS (9.5-11.5) 07/25/18 06:45 INR 1.01 (0.5-1.4) 07/25/18 06:45 PTT (Actin FS) 31.0 SECONDS (26.0-38.0) 07/25/18 06:45 Sodium 138 mEq/L (136-145) 07/26/18 04:20 Potassium 3.8 mEq/L (3.5-5.1) 07/26/18 04:20 Chloride 105 mEq/L (98-107) 07/26/18 04:20 Carbon Dioxide 26.2 mEq/L (21.0-31.0) 07/26/18 04:20 Anion Gap 10.6 (7.0-16.0) 07/26/18 04:20 BUN 17 mg/dL (7-25) 07/26/18 04:20 Creatinine 0.8 mg/dL (0.7-1.3) 07/26/18 04:20 Est GFR ( Amer) > 60.0 ml/min (>90) 07/26/18 04:20 Est GFR (Non-Af Amer) > 60.0 ml/min 07/26/18 04:20 BUN/Creatinine Ratio 21.3 07/26/18 04:20 Glucose 99 mg/dL (70-105) 07/26/18 04:20 Calcium 8.8 mg/dL (8.6-10.3) 07/26/18 04:20 Total Bilirubin 0.4 mg/dL (0.3-1.0) 07/26/18 04:20 AST 13 U/L (13-39) 07/26/18 04:20 ALT 10 U/L (7-52) 07/26/18 04:20 Alkaline Phosphatase 70 U/L (34-104) 07/26/18 04:20 Troponin I 0.05 ng/mL (0.01-0.05) 07/25/18 22:45 Total Protein 6.2 gm/dL (6.0-8.3) 07/26/18 04:20 Albumin 3.9 gm/dL (4.2-5.5) L 07/26/18 04:20 Globulin 2.3 gm/dL 07/26/18 04:20 Albumin/Globulin Ratio 1.7 (1.0-1.8) 07/26/18 04:20 Triglycerides 275 mg/dL (<150) H 07/25/18 06:45 Cholesterol 233 mg/dL (<200) H 07/25/18 06:45 LDL Cholesterol Direct 187 mg/dL (75-193) 07/25/18 06:45 HDL Cholesterol 38 mg/dL (23-92) 07/25/18 06:45 TSH 2.85 uIU/ml (0.34-5.60) 07/25/18 06:45 - Physical Exam Vitals and I&O: Vital Signs Temp 97.8 F 07/26/18 04:00 Pulse 54 07/26/18 04:00 Resp 20 07/26/18 05:41 BP 104/59 07/26/18 04:00 Pulse Ox 96 07/26/18 04:00 Intake & Output 07/25/18 07/26/18 07/26/18 18:59 06:59 18:59 Intake Total 150 Balance 150 Weight (lbs) 81.647 kg 81.647 kg Intake: Oral 150 Other: Weight Source [facility] Active Medications: Current Medications Aspirin (Ecotrin) 81 mg PO DAILY [facility] Stop: 09/24/18 08:59 Diltiazem HCl (Cardizem) 30 mg PO DAILY PRN PRN Reason: PALPITATIONS Stop: 09/23/18 12:10 Hydrochlorothiazide (Hctz) 12.5 mg PO DAILY [facility] Stop: 09/24/18 08:59 Lisinopril (Zestril) 20 mg PO DAILY [facility] Stop: 09/24/18 08:59 Metoprolol Succinate (Toprol Xl) 25 mg PO DAILY [facility] Stop: 09/24/18 08:59 General: Alert, Oriented x3, No acute distress HEENT: Atraumatic, PERRLA, EOMI Neck: Supple Cardiovascular: Regular rate, Normal S1, Normal S2 Lungs: Clear to auscultation Abdomen: Bowel sounds, Soft Extremities: no Clubbing, no Cyanosis, no Edema Neurological: Normal gait - Procedures Procedures: Procedures Procedure Code Date EGD CONTROL BLEEDING ANY 70886 01/23/04 ENDOSCOPIC CONTROL OF GASTRIC OR DUODENAL BLEEDING 44.43 01/23/04 Assessment/Plan - Assessment Assessment: Cardiac Arrhythmmia elevated troponins HTN Hyperlipidemia - Plan Plan: maybe discharge home today if Ok with Dr. Driver follow up with collateral clerk as outpatient ECHO pending.
[2018-07-26] MEDS ORDERED: LISINOPRIL PO SCH (09:00)
[2018-07-26] MEDS ORDERED: [UNRECOGNIZED DRUG - OTHER] PO SCH (09:00)
[2018-07-26] MEDS ORDERED: HYDROCHLOROTHIAZIDE PO SCH (09:00)
--- NOTE | 2018-07-26 11:44 | General Progress Note ---
Subjective - Review of Systems Service Date: 07/26/18 Subjective: Patient has no complaint of chest pain palpitations Objective - Results Result Diagrams: 07/26/18 04:20 07/26/18 04:20 Recent Labs: Laboratory Last Values WBC 5.9 Th/cmm (4.8-10.8) 07/26/18 04:20 RBC 4.45 Mil/cmm (4.30-5.70) 07/26/18 04:20 Hgb 13.6 gm/dL (12-16) 07/26/18 04:20 Hct 40.0 % (41.0-60) L 07/26/18 04:20 MCV 89.9 fl (80-99) 07/26/18 04:20 MCH 30.5 pg (26.0-30.0) H 07/26/18 04:20 MCHC Differential 33.9 pg (28.0-36.0) 07/26/18 04:20 RDW 13.8 % (11.5-20.0) 07/26/18 04:20 Plt Count 259 Th/cmm (150-400) 07/26/18 04:20 MPV 7.7 fl 07/26/18 04:20 Neutrophils % 54.0 % (40.0-80.0) 07/26/18 04:20 Lymphocytes % 31.8 % (20.0-50.0) 07/26/18 04:20 Monocytes % 8.8 % (2.0-10.0) 07/26/18 04:20 Eosinophils % 4.9 % (0.0-5.0) 07/26/18 04:20 Basophils % 0.5 % (0.0-2.0) 07/26/18 04:20 PT 10.5 SECONDS (9.5-11.5) 07/25/18 06:45 INR 1.01 (0.5-1.4) 07/25/18 06:45 PTT (Actin FS) 31.0 SECONDS (26.0-38.0) 07/25/18 06:45 Sodium 138 mEq/L (136-145) 07/26/18 04:20 Potassium 3.8 mEq/L (3.5-5.1) 07/26/18 04:20 Chloride 105 mEq/L (98-107) 07/26/18 04:20 Carbon Dioxide 26.2 mEq/L (21.0-31.0) 07/26/18 04:20 Anion Gap 10.6 (7.0-16.0) 07/26/18 04:20 BUN 17 mg/dL (7-25) 07/26/18 04:20 Creatinine 0.8 mg/dL (0.7-1.3) 07/26/18 04:20 Est GFR ( Amer) > 60.0 ml/min (>90) 07/26/18 04:20 Est GFR (Non-Af Amer) > 60.0 ml/min 07/26/18 04:20 BUN/Creatinine Ratio 21.3 07/26/18 04:20 Glucose 99 mg/dL (70-105) 07/26/18 04:20 Calcium 8.8 mg/dL (8.6-10.3) 07/26/18 04:20 Total Bilirubin 0.4 mg/dL (0.3-1.0) 07/26/18 04:20 AST 13 U/L (13-39) 07/26/18 04:20 ALT 10 U/L (7-52) 07/26/18 04:20 Alkaline Phosphatase 70 U/L (34-104) 07/26/18 04:20 Troponin I 0.05 ng/mL (0.01-0.05) 07/25/18 22:45 Total Protein 6.2 gm/dL (6.0-8.3) 07/26/18 04:20 Albumin 3.9 gm/dL (4.2-5.5) L 07/26/18 04:20 Globulin 2.3 gm/dL 07/26/18 04:20 Albumin/Globulin Ratio 1.7 (1.0-1.8) 07/26/18 04:20 Triglycerides 275 mg/dL (<150) H 07/25/18 06:45 Cholesterol 233 mg/dL (<200) H 07/25/18 06:45 LDL Cholesterol Direct 187 mg/dL (75-193) 07/25/18 06:45 HDL Cholesterol 38 mg/dL (23-92) 07/25/18 06:45 TSH 2.85 uIU/ml (0.34-5.60) 07/25/18 06:45 - Physical Exam Vitals and I&O: Vital Signs Temp 97.3 F 07/26/18 08:00 Pulse 70 07/26/18 08:36 Resp 20 07/26/18 11:00 BP 133/77 07/26/18 08:36 Pulse Ox 96 07/26/18 08:00 Intake & Output 07/25/18 07/26/18 07/26/18 18:59 06:59 18:59 Intake Total 150 Balance 150 Weight (lbs) 81.647 kg 81.647 kg Intake: Oral 150 Other: Weight Source [facility] Active Medications: Current Medications Aspirin (Ecotrin) 81 mg PO DAILY [facility] Stop: 09/24/18 08:59 Last Admin: 07/26/18 08:36 Dose: 81 mg Diltiazem HCl (Cardizem) 30 mg PO DAILY PRN PRN Reason: PALPITATIONS Stop: 09/23/18 12:10 Hydrochlorothiazide (Hctz) 12.5 mg PO DAILY [facility] Stop: 09/24/18 08:59 Last Admin: 07/26/18 08:35 Dose: 12.5 mg Lisinopril (Zestril) 20 mg PO DAILY [facility] Stop: 09/24/18 08:59 Last Admin: 07/26/18 08:36 Dose: 20 mg Metoprolol Succinate (Toprol Xl) 25 mg PO DAILY [facility] Stop: 09/24/18 08:59 Last Admin: 07/26/18 08:34 Dose: 25 mg General: Alert, Oriented x3, Cooperative, No acute distress HEENT: Atraumatic, PERRLA, EOMI, Mucous membr. moist/pink Neck: Supple, +2 carotid pulse wo bruit Cardiovascular: Regular rate, Normal S1, Normal S2, Systolic murmurs Lungs: Clear to auscultation, Normal air movement Abdomen: Bowel sounds, Soft Extremities: Pulses, no Clubbing, no Cyanosis, no Edema Neurological: Normal gait, Normal speech (normal), Strength at 5/5 X4 ext, Normal tone, Cranial nerves 3-12 NL, Reflexes 2+ - Procedures Procedures: Procedures Procedure Code Date EGD CONTROL [place]LE[place] 65899 01/23/04 ENDOSCOPIC CONTROL OF GASTRIC OR DUODENAL BLEEDING 44.43 01/23/04 Assessment/Plan - Assessment Assessment: Paroxysmal supraventricular tachycardia - Plan Plan: Patient can be discharged patient relates radiofrequency ablation patient to follow with primary care and 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
--- NOTE | 2018-07-27 14:58 | Cardiology ---
07/26/[address] Abdoul Luna. M-MODE ECHOCARDIOGRAM: Mitral valve, anterior leaflet of mitral valve shows normal excursion, EF velocity. Posterior leaflet of the mitral valve shows normal excursion. Left ventricular posterior wall shows increased thickness, normal excursion. Interventricular septum shows increased thickness, normal excursion, hypertrophy of the left ventricle, ejection fraction 65%. Left atrium normal. Aortic root shows normal dimension, normal excursion of aortic leaflets. CONCLUSION: Hypertrophy of the left ventricle, ejection fraction 65%. 2D ECHO: Long axis view showed normal sized left ventricle with minimal hypertrophy of the left ventricle. Left atrium normal. Aortic root shows normal dimension, normal excursion of aortic leaflets. Short axis view of mitral valve normal. Short axis view of aortic valve normal. Apical four chamber view showed normal sized left ventricle with hypertrophy of the left ventricle. Left atrium normal. Right ventricular cavity, right atrium normal, no pericardial effusion. CONCLUSION: Hypertrophy of the left ventricle, ejection fraction 65%. Doppler study shows mild mitral regurgitation, mild tricuspid regurgitation, right ventricular systolic pressure 26 mmHg. [facility]# [id number]
--- NOTE | 2018-07-28 11:00 | Discharge Summary ---
DATE OF DISCHARGE: 07/26/2018 PRELIMINARY DIAGNOSES: 1. Cardiac arrhythmia. 2. History of supraventricular tachycardia. 3. Hypertension. 4. Hyperlipidemia. 5. Rule out acute coronary syndrome. DISCHARGE DIAGNOSES: 1. Cardiac arrhythmia, now in normal sinus rhythm. 2. Hypertension, stable. 3. Hyperlipidemia. 4. Acute coronary artery syndrome ruled out. BRIEF HISTORY OF PRESENT ILLNESS: This is a 62-year-old male who presents to [facility] ER for palpitations and substernal chest pain. States that he was on his way to work when he felt some discomfort to his chest. 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 Denies any nausea or vomiting, but admits to some substernal chest pain. Initially while in the ER, the patient was seen and evaluated by the Emergency Room physician. Initial lab work came back essentially normal with white count of 8.0, hemoglobin 14.2, hematocrit 42.9, platelets 277. Sodium was normal at 139, potassium 3.9, chloride 105, bicarbonate 23, BUN 21, creatinine 0.9, glucose 126. Initial troponin level was less than 0.01. The patient had a 12-lead EKG done in the ER, which showed SVT. The patient was then subsequently transferred to [facility] bed and admitted for observation. HOSPITAL COURSE: The patient improved during his hospital stay. While in the ER, the patient was given IV Cardizem, which converted his rhythm back to normal sinus rhythm. The patient had serial troponin levels, which were essentially normal. The patient was seen and evaluated by Cardiology, see dictated report. The patient denied any further pain or discomfort into his chest. Denied any palpitations. Remained stable throughout his course of stay and was subsequently discharged home. He was advised to follow up with the studio technician. The patient was to continue his current home meds. [facility]# [id number]
== END 2018-07-26 14:00 | disposition home or self-care (01) | DRG 310 ==
LOC: ER 06:12 → MSI 11:32 → TELE 11:47
PROVIDERS: ADMIT Family Medicine; ATTEND Family Medicine
DX: I47.1 Supraventricular tachycardia (principal); I10 Essential (primary) hypertension; E78.5 Hyperlipidemia, unspecified; Z79.82 Long term (current) use of aspirin; Z79.899 Other long term (current) drug therapy
CPT/HCPCS: 36415-UA; 80053-TC; 80061-TC; 84443-TC; 84484-TC; 85025-TC; 85610-TC; 85730-TC; 90779; 93005; 96374; J7030; Z7610